=== PATIENT | female | born 1995 | race American Indian/Alaskan Native ===

== ENCOUNTER 2016-10-31 13:46 | Emergency (ER) | payer MEDICAID ==
[2016-10-31 14:03] VITALS: BP 116/75
--- NOTE | 2016-10-31 14:32 | Emergency Department Report ---
ED Back Pain/Injury HPI - General Chief Complaint: Back Pain/Injury Stated Complaint: SEVERE BACK PAIN Time Seen by Provider: 10/31/16 14:28 Source: patient Limitations: No Limitations - History of Present Illness Initial Comments: Patient reports pain that started in the right shoulder that radiates down the right back and right leg that started one week ago. Patient denies trauma or injury. She also experienced similar symptoms six months ago, given Ibuprofen which did not improve symptoms, however reports Percocet provided relief from pain. MD Complaint: back pain Onset/Timin -: week(s) Similar Symptoms Previously: Yes Place: home Radiation: right leg Severity: severe Severity scale (0 -10): 9 Quality: sharp Consistency: constant Improves With: immobilization Worsens With: movement Context: unknown Associated Symptoms: denies: confusion, weakness, chest pain, numbness, difficulty walking, cough, difficulty urinating, diaphoresis, incontinence, fever/chills, constipation, headaches, abdominal pain, loss of appetite, malaise , nausea/vomiting, rash, seizure, shortness of breath, syncope Treatments Prior to Arrival: acetaminophen - Related Data Previous Rx's Medication Instructions Recorded Last Taken Type Nitrofurantoin [place]/M-Cryst 100 mg PO Q12HR #14 capsule 10/31/16 Unknown Rx [Macrobid CAP] traMADol [Ultram 50 MG tab] 50 mg PO Q6HR PRN #6 tablet 10/31/16 Unknown Rx Allergies Allergy/AdvReac Type Severity Reaction Status Date / Time latex Allergy Intermediate Rash Verified 10/31/16 13:58 ED Review of Systems ROS: Stated complaint: SEVERE BACK PAIN Other details as noted in HPI Comment: All other systems reviewed and negative Constitutional: denies: chills, diaphoresis, fever, malaise Respiratory: denies: cough, orthopnea, shortness of breath, SOB with exertion, SOB at rest, stridor, wheezing Cardiovascular: denies: chest pain, palpitations, dyspnea on exertion, orthopnea , edema, syncope, paroxysmal nocturnal dyspnea Musculoskeletal: back pain. denies: joint swelling, arthralgia, myalgia Skin: denies: rash, lesions Neurological: denies: headache, weakness, numbness, paresthesias, confusion, abnormal gait, vertigo ED Past Medical Hx - Past Medical History Hx Hypertension: No Hx Diabetes: No Hx Deep Vein Thrombosis: No Hx Renal Disease: No Hx Sickle Cell Disease: No Hx Seizures: No Hx Asthma: Yes (last attack age 10) Hx HIV: No - Surgical History Past Surgical History?: No - Social History Smoking Status: Current Every Day Smoker Substance Use Type: None - Medications Home Medications: Home Medications Medication Instructions Recorded Confirmed Last Taken Type Nitrofurantoin [place]/M-Cryst 100 mg PO Q12HR #14 capsule 10/31/16 Unknown Rx [Macrobid CAP] traMADol [Ultram 50 MG tab] 50 mg PO Q6HR PRN #6 tablet 10/31/16 Unknown Rx ED Physical Exam - General Limitations: No Limitations General appearance: alert, in no apparent distress - Head Head exam: Present: atraumatic, normocephalic - Eye Eye exam: Present: normal appearance - ENT ENT exam: Present: normal exam, normal orophraynx, mucous membranes moist. Absent: mucous membranes dry - Neck Neck exam: Present: normal inspection, full ROM. Absent: tenderness, meningismus, lymphadenopathy, thyromegaly - Respiratory Respiratory exam: Present: normal lung sounds bilaterally. Absent: respiratory distress, wheezes, rales, rhonchi, stridor, chest wall tenderness, accessory muscle use, decreased breath sounds, prolonged expiratory - Cardiovascular Cardiovascular Exam: Present: regular rate, normal rhythm, normal heart sounds. Absent: systolic murmur, diastolic murmur, rubs, gallop - GI/Abdominal GI/Abdominal exam: Present: soft, tenderness (suprapubic), normal bowel sounds. Absent: distended, guarding, rebound, rigid - Extremities Exam Extremities exam: Present: normal inspection, full ROM, normal capillary refill. Absent: tenderness, pedal edema, joint swelling, calf tenderness - Back Exam Back exam: Present: normal inspection, full ROM, tenderness (right trapezius, scalpular, latissimus dorsi and right leg with palpation), CVA tenderness (L). Absent: CVA tenderness (R), muscle spasm, paraspinal tenderness, vertebral tenderness, rash noted - Neurological Exam Neurological exam: Present: alert, oriented X3, CN II-XII intact, normal gait, reflexes normal. Absent: motor sensory deficit - Psychiatric Psychiatric exam: Present: normal affect, normal mood - Skin Skin exam: Present: warm, dry, intact, normal color. Absent: rash ED Course Vital Signs 10/31/16 14:00 Temperature 99.2 F Pulse Rate 68 Respiratory 17 Rate Blood Pressure 116/75 O2 Sat by Pulse 100 Oximetry - Reevaluation(s) Reevaluation #1: 10/31/16 14:32 laboratory studies ordered ED Medical Decision Making - Lab Data Vital Signs 10/31/16 14:00 Temperature 99.2 F Pulse Rate 68 Respiratory 17 Rate Blood Pressure 116/75 O2 Sat by Pulse 100 Oximetry Lab Results 10/31/16 Range/Units 15:00 Urine Color Yellow (Yellow) Urine Turbidity Clear (Clear) Urine pH 6.0 (5.0-7.0) Ur Specific [place] 1.025 (1.003-1.030) Urine Protein 30 mg/dl (Negative) mg/dL Urine Glucose (UA) Neg (Negative) mg/dL Urine Ketones Neg (Negative) mg/dL Urine Blood Sm (Negative) Urine Nitrite Neg (Negative) Urine Bilirubin Neg (Negative) Urine Urobilinogen 2.0 (<2.0) mg/dL Ur Leukocyte Esterase Sm (Negative) Urine WBC (Auto) 20.0 H (0.0-6.0) /HPF Urine RBC (Auto) 12.0 (0.0-6.0) /HPF U Epithel Cells (Auto) 1.0 (0-13.0) /HPF Urine Bacteria (Auto) 1+ (Negative) /HPF Urine Mucus 3+ /HPF Urine HCG, Qual Negative (Negative) - Medical Decision Making During the course of ED, laboratory studies and pain medication were ordered. Patient was sent home with prescriptions for Macrobid and Tramadol, instructed to follow up with the selective referral given at discharge, she verbalized understanding - Differential Diagnosis UTI, Pyelonephritis Critical care attestation.: If time is entered above; I have spent that time in minutes in the direct care of this critically ill patient, excluding procedure time. ED Disposition Clinical Impression: UTI (urinary tract infection) Qualifiers: Urinary tract infection type: acute pyelonephritis Qualified Code(s): N10 - Acute pyelonephritis Disposition: - TO HOME OR SELFCARE Is pt being admited?: No Does the pt Need Aspirin: No Condition: Stable Instructions: Urinary Tract Infection in Women (ED) Additional Instructions: Take medication as directed. No drinking, driving or operating heavy machinery while taking pain medication. Follow up with the selective referral given at discharge. Return back to the ED for worsening symptoms or concerns Prescriptions: Nitrofurantoin [place]/M-Cryst [Macrobid CAP] 100 mg PO Q12HR #14 capsule traMADol [Ultram 50 MG tab] 50 mg PO Q6HR PRN #6 tablet PRN Reason: Pain Referrals: PRIMARY CARE, [Primary Care Provider] - 3-5 Days RAFFAELE COOK MD [Staff Physician] - 3-5 Days HEMANT TILLMAN CNM [Advanced Practice Nurse] - 3-5 Days LOLIS BALTAZAR CNM [Advanced Practice Nurse] - 3-5 Days Forms: Work/School Release Form Time of Disposition: 15:27
[2016-10-31 15:18] LABS: Bacteria,Urine 1+ /HPF (Negative); Bilirubin,Urine NEG (Negative); Blood,Urine SM (Negative); Ketones,Urine NEG (Negative); Leukocyte Esterase,Urine SM (Negative); Mucus,Urine 3+ /HPF; Nitrite,Urine NEG (Negative)
[2016-10-31] MEDS ORDERED: NORCO 5/325 PO ONE (15:26)
== END 2016-10-31 15:43 | disposition home or self-care (01) ==
LOC: ED 13:46
DX: N10 Acute pyelonephritis (principal); F17.200 Nicotine dependence, unspecified, uncomplicated; J45.909 Unspecified asthma, uncomplicated
CPT/HCPCS: 81001; 81025; 99283

== ENCOUNTER 2020-08-28 10:21 | Emergency (ER) | payer SELFPAY ==
[2020-08-28 11:01] VITALS: BP 111/69
--- NOTE | 2020-08-28 11:43 | Emergency Department Report ---
Chief Complaint: Sore Throat Stated Complaint: SORE THROAT Time Seen by Provider: 08/28/20 11:39 - HPI History of Present Illness: 25-year-old female patient presents to the emergency department with complaints of a sore throat and nonproductive cough for 5 days. Patient states that she was seen at another local hospital 3 days ago, at which time she tested negative for strep and was treated with a steroid injection. She states her symptoms have not improved. She states that she was given 1 day off of work and her employer is requiring additional documentation. She has been taking Tylenol and Ibuprofen for pain. Denies fever, chills, neck stiffness, ear pain, vomiting, rash, hoarseness, difficulty breathing, difficulty handling secretions. Denies other complaints at this time. - ROS Review of Systems: GENERAL: Negative for fever. ENT: Positive for sore throat CARDIOVASCULAR: Negative for chest pain. PULMONARY: Positive for nonproductive cough. GASTROINTESTINAL: Negative for abdominal pain. MUSCULOSKELETAL: Negative for back pain. NEUROLOGICAL: Negative for headache. INTEGUMENTARY: Negative for rash. - Exam Vital Signs: Vital Signs 08/28/20 10:59 Temperature 99.0 F Pulse Rate 63 Respiratory 20 Rate Blood Pressure 111/69 O2 Sat by Pulse 99 Oximetry Physical Exam: General: Awake, appropriately interactive, no acute distress. ENT: Normal otoscopic exam. Mild pharyngeal erythema without tonsillar edema or exudate. Uvula is midline and nonedematous. Airway is patent. Voice is not hoarse. Patient is handling secretions without difficulty. No trismus. Neck: Supple. Full range of motion intact. No cervical lymphadenopathy. Cardiovascular: Regular rate and rhythm. Normal peripheral perfusion. Pulmonary: Lungs are clear to auscultation. No respiratory distress. Patient is speaking normally without use of accessory muscles. Skin: No apparent rashes or lesions. Neurological: No facial asymmetry. Speech is clear. Follows commands. Patient is alert and oriented. Musculoskeletal: Moves all four extremities spontaneously with normal range of motion. Psych: Cooperative. Appropriate mood and affect. MSE screening note: Focused history and physical exam performed. Due to findings the following was ordered: ED Medical Decision Making - Medical Decision Making Patient presents to emergency department complaints of a sore throat. She has already tested negative for strep at another facility. She is afebrile. Vital signs are stable. No respiratory distress, no hypoxia. Appears well-hydrated. No trismus. Repeat strep PCR not clinically indicated per [facility] criteria; patient will be treated symptomatically for viral pharyngitis. Patient has been provided with documentation for her employer for this week. However, it was explained to the patient that additional documentation for further sick leave w ill need to be arranged by a primary care provider. Referral provided. Patient expressed understanding is agreeable to plan of care. Strict return precautions provided. ED Disposition for MSE Clinical Impression: Acute viral pharyngitis Disposition: MED SCREENING EXAM-LEFT Is pt being admited?: No Does the pt Need Aspirin: No Condition: Stable Instructions: Pharyngitis, [id number] Additional Instructions: Take Tylenol every 4 hours as needed for pain. Take Naprosyn twice daily with food as needed for pain. Use [id number] Cepacol lozenges as needed for sore throat. Use salt water gargles as needed for sore throat. Cold foods and fluids, such as popsicles, may help with sore throat. Follow-up with your primary care provider on Tuesday. Call today to schedule an appointment. The emergency department cannot provide work release forms for extended periods of time. If you need additional days off, you will need to receive documentation from your primary care provider. Return to the emergency department immediately for new or worsening symptoms. Prescriptions: Naproxen 500 mg PO BID #20 tablet Referrals: ANDREW SAMUELS MD [Staff Physician] - 3-5 Days Forms: Work/School Release Form(ED) Time of Disposition: 11:44
== END 2020-08-28 12:53 | disposition left against medical advice (07) ==
LOC: ED 10:21
DX: J02.8 Acute pharyngitis due to other specified organisms (principal); Z53.21 Procedure and treatment not carried out due to patient leaving prior to being seen by health care provider